=== PATIENT | male | born 2000 | race Hispanic/Latino ===

== ENCOUNTER 2023-04-07 18:04 | Emergency (ER) | payer SELFPAY ==
[2023-04-07 18:30] VITALS: BP 123/80
[2023-04-07 18:56] LABS: URINE BILIRUBIN - DIPSTICK Negative (NEGATIVE); URINE BLOOD DIPSTICK Large (NEGATIVE); URINE COLOR Yellow; URINE GLUCOSE - DIPSTICK Negative (NEGATIVE); URINE KETONE Negative (NEGATIVE); URINE LEUK ESTERASE Small (NEGATIVE); URINE NITRITE - DIPSTICK Negative (Negative); URINE PROTEIN - DIPSTICK >=300 mg/dL (NEG-TRACE); URINE SPECIFIC GRAVITY >=1.030
[2023-04-07 18:59] LABS: URINE RBC 50-100 RBC/hpf (0-5); URINE WBC 20-50 WBC/hpf (0-5)
[2023-04-07 19:00] VITALS: BP 112/75
[2023-04-07 19:30] VITALS: BP 122/69
[2023-04-07 20:01] VITALS: BP 119/77
[2023-04-07] MEDS ORDERED: BACTRIM DS1 TAB PO (20:05)
[2023-04-07 20:24] VITALS: BP 119/77
== END 2023-04-07 20:27 | disposition home or self-care (01) | DRG 690 ==
LOC: ED 18:04
PROVIDERS: Emergency Medicine
DX: N39.0 Urinary tract infection, site not specified (principal)